=== PATIENT | male | born 1990 | race Caucasian/White ===

== ENCOUNTER 2021-01-23 19:43 | Emergency (ER) | payer SELFPAY ==
[~2021-01-23 19:43] MED LIST: CLARITIN10 MG PO; FLOVENT 110.088 GM/I INH; GAVILYTE-C SO4000 ML PO; IBUPROFEN600 MG PO; LODINE CAP 300300 MG PO; PREDNISONE 50 M50 MG PO; SUDOGEST60 MG PO; SYMBICORT 16010.2 GM INH; TESSALON PERLE100 MG PO; VITAMIN D31000 UNIT PO; XYZAL5 MG PO; ZOFRAN ODT 4 MG4 MG PO; ZYRTEC10 MG PO
[2021-01-23] MEDS ORDERED: PROAIR HFA8.5 GM INH (20:39)
== END 2021-01-23 20:35 | disposition home or self-care (01) ==
LOC: ER1 19:43
DX: J06.9 Acute upper respiratory infection, unspecified (principal); J20.9 Acute bronchitis, unspecified; J45.909 Unspecified asthma, uncomplicated; F17.200 Nicotine dependence, unspecified, uncomplicated; Z20.822 Contact with and (suspected) exposure to COVID-19
CPT/HCPCS: 99283; U0003